=== PATIENT | female | born 1990 | race Caucasian/White ===

== ENCOUNTER 2017-01-09 21:46 | Emergency (ER) | payer OTHER ==
[~2017-01-09] VITALS: Ht 160 cm; Wt 47.6 kg
[2017-01-09] MEDS ORDERED: MICROGESTIN FE1 EAC1 PO (22:21)
[2017-01-09] MEDS ORDERED: IBUPROFEN600 MG ORAL (22:40)
--- NOTE | 2017-01-09 22:40 | Emergency Room Report ---
History of Present Illness General Chief Complaint: Head Injury Source: Patient Present Illness HPI This is a 26-year-old female with no past medical history. She presents with chief complaint of head injury. She was at work and was hit in the head with a wooden beam. He was on a cart and was going by her hit her head. She has some dizziness afterward. Better now. Mild pain. No loss of consciousness. No other injury. No fever or chills. No focal deficit. Allergies: Coded Allergies: No Known Allergies (Unverified , 01/09/17) Patient History Past Medical History: none, see triage record, old chart reviewed Past Surgical History: none Pertinent Family History: none Social History: Denies: smoking Now: No Immunizations: other Reviewed Nursing Documentation: PMH: Agreed, PSxH: Agreed Nursing Documentation-PMH Past Medical History: No Stated History Review of Systems Eye: Denies: eye pain, blurred vision ENT: Denies: ear pain, nose congestion, throat swelling Respiratory: Denies: cough, shortness of breath Cardiovascular: Denies: chest pain, palpitations Gastrointestinal: Denies: abdominal pain, diarrhea, nausea, vomiting Musculoskeletal: Denies: back pain, joint pain Skin: Denies: rash Neurological: Denies: headache, numbness Endocrine: Denies: increased thirst, increased urine Hematologic/Lymphatic: Denies: easy bruising All Other Systems: negative except mentioned in HPI Physical Exam Vital Signs Date Time Temp Pulse Resp B/P (MAP) Pulse Ox O2 Delivery O2 Flow Rate FiO2 01/09/17 22:18 97.5 86 18 115/61 98 Room Air vitals normal Sp02 EP Interpretation: reviewed, normal General Appearance: well appearing, no apparent distress, alert Head: normocephalic, other - Mild tenderness over the right parietal area. No significant hematoma. Eyes: bilateral eye PERRL, bilateral eye EOMI ENT: hearing grossly normal, normal pharynx Neck: full range of motion, supple, no meningismus Respiratory: chest non-tender, lungs clear, normal breath sounds Cardiovascular #1: regular rate, rhythm, no murmur Gastrointestinal: normal bowel sounds, non tender, no mass, no organomegaly, no bruit, non-distended Musculoskeletal: back normal, gait/station normal, normal range of motion Psychiatric: mood/affect normal Skin: warm/dry Medical Decision Making Diagnostic Impression: Primary Impression: Acute head injury Qualified Codes: S09.90XA - Unspecified injury of head, initial encounter ER Course Patient with a head injury. Her injury is minor. I see no evidence of internal bleeding or fracture. I see no need for CT scan at this moment in time. Discussed this with patient and she agreed with me. Last Vital Signs Date Time Temp Pulse Resp B/P (MAP) Pulse Ox O2 Delivery O2 Flow Rate FiO2 01/09/17 22:18 97.5 86 18 115/61 98 Room Air Status: unchanged Disposition: HOME, SELF-CARE Condition: Stable Scripts Ibuprofen* (MOTRIN*) 600 Mg Tablet 600 MG ORAL Q8H Y for For Pain, #30 TAB 0 Refills Prov: LIANA GARCIA M.D. 01/09/17 Patient Instructions: HEAD INJURY, No Wake-Up (Adult) Additional Instructions: Followup with your employer in 2-3 days. Return for any concern. LIANA GARCIA M.D. Jan 09, 2017 22:40
[2017-01-09 23:20] VITALS: BP 115/61
--- NOTE | 2017-01-10 09:22 | Diagnostic Imaging Report ---
Indication: TRAUMA, it had been Technique: Continuous helical CT scanning of the head was performed without intravenous contrast material. Axial and coronal 5 mm sections were generated. Radiation dose was minimized using automated exposure control Dose: Total Dose Length Product - DLP [address] Dose Index - CTDIvol(s) 70.38 mGy. Comparison: None Findings: The ventricular system is normal in size and configuration. There is no shift of midline structures. No abnormal extra-axial fluid collections are noted. There is no evidence of intracerebral bleeding. No other abnormal high or low density areas are noted within the brain. Impression: Normal CT scan of the head without contrast material. This agrees with the preliminary interpretation provided overnight by [facility] service. The CT scanner at [facility] is accredited by the [employer] and the scans are performed using protocols designed to limit radiation exposure to as low as reasonably achievable to attain images of sufficient resolution adequate for diagnostic evaluation.
== END 2017-01-09 23:20 | disposition home or self-care (01) ==
LOC: EMR 22:50
DX: S09.90XA Unspecified injury of head, initial encounter (principal); W22.8XXA Striking against or struck by other objects, initial encounter; Y93.9 Activity, unspecified; Y99.0 Civilian activity done for income or pay
CPT/HCPCS: 70450; 99284